=== PATIENT | female | born 1995 | race African-American/Black ===

== ENCOUNTER 2017-09-05 04:44 | Emergency (ER) | payer OTHER ==
[2017-09-05] MEDS ORDERED: LIDOCAINE 1%/EPINEPHRINE INJ 20 ML VIAL INJ ONE (05:48)
--- NOTE | 2017-09-05 05:51 | ER Document Report ---
ED Psych Disorder / Suicide - General Mode of Arrival: Wheelchair Information source: Patient TRAVEL OUTSIDE OF THE [place] IN LAST 30 DAYS: No - HPI Onset was: Sudden Quality of pain: Achy Pain Level: 2 Suicide Risk Factors: Bipolar Injury to: Leg Associated symptoms: Flat affect Similar symptoms previously: No Recently seen / treated by doctor: No <JANICE CHAN - Last Filed: 09/05/17 07:46> <SCOTT PRITCHETT - Last Filed: 09/05/17 11:04> - General Chief Complaint: Leg Injury Stated Complaint: LACERATION RIGHT LEG Time Seen by Provider: 09/05/17 05:16 Notes: Patient states that she was attempting to jump over a fence and cut her leg on a chain link fence. Patient reports tetanus immunization is currently up-to- date. Patient with with injuries that are inconsistent with her description of events. Patient with several superficial lacerations just superior to her larger laceration which prompted her ER visit sammy. (JANICE CHAN) - Related Data Allergies/Adverse Reactions: No Known Allergies Allergy (Unverified 12/04/15 00:08) Past Medical History - General Information source: Patient - Social History Smoking Status: Current Every Day Smoker Chew tobacco use (# tins/day): No Frequency of alcohol use: Occasional Drug Abuse: Marijuana Family History: Reviewed & Not Pertinent Patient has suicidal ideation: No Patient has homicidal ideation: No Renal/ Medical History: Denies: Hx Peritoneal Dialysis Psychiatric Medical History: Reports: Hx Anxiety, Hx Bipolar Disorder, Hx Depression - anxiety, borderline personality disorder, eating disorder Past Surgical History: Reports: Hx Oral Surgery - Immunizations Hx Diphtheria, Pertussis, Tetanus Vaccination: Yes <JANICE CHAN - Last Filed: 09/05/17 07:46> Review of Systems - Review of Systems Constitutional: No symptoms reported EENT: No symptoms reported Cardiovascular: No symptoms reported Respiratory: No symptoms reported Gastrointestinal: No symptoms reported Genitourinary: No symptoms reported Female Genitourinary: No symptoms reported Musculoskeletal: No symptoms reported Skin: Other - Right thigh laceration Hematologic/Lymphatic: No symptoms reported Neurological/Psychological: No symptoms reported <JANICE CHAN - Last Filed: 09/05/17 07:46> Physical Exam - General General appearance: Appears well, Alert In distress: None - Respiratory Respiratory status: No respiratory distress Chest status: Nontender Breath sounds: Normal Chest palpation: Normal - Cardiovascular Rhythm: Regular Heart sounds: S1 appreciated, S2 appreciated Murmur: No - Back Back: Normal - Extremities General upper extremity: Normal inspection, Normal ROM General lower extremity: Normal ROM - Neurological Neuro grossly intact: Yes Cognition: Normal Jae Coma Scale Eye Opening: Spontaneous [place] Coma Scale Verbal: Oriented [place] Coma Scale Motor: Obeys Commands Jae Coma Scale Total: 15 - Psychological Associated symptoms: Flat affect - Skin Skin Temperature: Warm Skin Moisture: Dry Skin irregularity: Laceration - 8 cm laceration to the anterior aspect of right thigh, patient with several superficial lacerations just superior to this injury <JANICE CHAN - Last Filed: 09/05/17 07:46> - Vital signs Vitals: Temp Pulse Resp BP Pulse Ox 98.7 F 91 16 124/75 98 09/05/17 04:45 09/05/17 04:45 09/05/17 04:45 09/05/17 04:45 09/05/17 04:45 Course - Laboratory Result Diagrams: 09/05/17 05:55 09/05/17 05:55 <JANICE CHAN - Last Filed: 09/05/17 07:46> - Laboratory Result Diagrams: 09/05/17 05:55 09/05/17 05:55 <SCOTT PRITCHETT - Last Filed: 09/05/17 11:04> - Re-evaluation Re-evalutation: 09/05/17 05:50 Patient's injuries in consistent with the reported story that she said happened tonight. Patient does have a previous history of anxiety, bipolar disorder and previous suicidal ideation in the past. Patient confronted with the discrepancy in her story and asked if there was anything else she wanted to say. Patient did acknowledge self injury stating that she had a bad night tonight. 09/05/17 07:46 Report and handout given to Iman HOOK (JANICE CHAN) - Vital Signs Vital signs: Temp Pulse Resp BP Pulse Ox 98.7 F 91 16 124/75 98 09/05/17 04:45 09/05/17 04:45 09/05/17 04:45 09/05/17 04:45 09/05/17 04:45 - Laboratory Laboratory results interpreted by me: 09/05/17 09/05/17 09/05/17 05:55 05:55 06:42 RDW 15.3 H Urine Protein 100 H Urine Ketones 20 H Urine Urobilinogen 2.0 H Ur Leukocyte Esterase LARGE H Salicylates < 1.0 L Acetaminophen < 10 L Labs- Entire Visit 09/05/17 09/05/17 09/05/17 05:55 05:55 05:55 WBC 10.5 RBC 4.84 Hgb 13.2 Hct 39.8 MCV 82 MCH 27.2 MCHC 33.1 RDW 15.3 H Plt Count 287 Seg Neutrophils % 69.9 Lymphocytes % 19.1 Monocytes % 9.5 Eosinophils % 1.2 Basophils % 0.3 Absolute Neutrophils 7.4 Absolute Lymphocytes 2.0 Absolute Monocytes 1.0 Absolute Eosinophils 0.1 Absolute Basophils 0.0 Sodium 143.5 Potassium 3.8 Chloride 101 Carbon Dioxide 27 Anion Gap 16 BUN 12 Creatinine 0.60 Est GFR ( Amer) > 60 Est GFR (Non-Af Amer) > 60 Glucose 108 Calcium 10.1 Total Bilirubin 0.7 Direct Bilirubin 0.3 Neonat Total Bilirubin Not Reportable Neonat Direct Bilirubin Not Reportable Neonat Indirect Bili Not Reportable AST 22 ALT 22 Alkaline Phosphatase 59 Total Protein 7.5 Albumin 4.5 Serum HCG, Qual NEGATIVE Urine Color Urine Appearance Urine pH Ur Specific [place] Urine Protein Urine Glucose (UA) Urine Ketones Urine Blood Urine Nitrite Urine Bilirubin Urine Urobilinogen Ur Leukocyte Esterase Urine WBC (Auto) Urine RBC (Auto) U Hyaline Cast (Auto) Urine Bacteria (Auto) Squamous Epi Cells Auto Urine Mucus (Auto) Urine Ascorbic Acid Salicylates < 1.0 L Urine Opiates Screen Urine Methadone Screen Acetaminophen < 10 L Ur Barbiturates Screen Ur Phencyclidine Scrn Ur Amphetamines Screen U Benzodiazepines Scrn Urine Cocaine Screen U Marijuana (THC) Screen Serum Alcohol < 10 09/05/17 09/05/17 06:42 06:42 WBC RBC Hgb Hct MCV MCH MCHC RDW Plt Count Seg Neutrophils % Lymphocytes % Monocytes % Eosinophils % Basophils % Absolute Neutrophils Absolute Lymphocytes Absolute Monocytes Absolute Eosinophils Absolute Basophils Sodium Potassium Chloride Carbon Dioxide Anion Gap BUN Creatinine Est GFR ( Amer) Est GFR (Non-Af Amer) Glucose Calcium Total Bilirubin Direct Bilirubin Neonat Total Bilirubin Neonat Direct Bilirubin Neonat Indirect Bili AST ALT Alkaline Phosphatase Total Protein Albumin Serum HCG, Qual Urine Color YELLOW Urine Appearance CLOUDY Urine pH 6.0 Ur Specific [place] 1.019 Urine Protein 100 H Urine Glucose (UA) NEGATIVE Urine Ketones 20 H Urine Blood NEGATIVE Urine Nitrite NEGATIVE Urine Bilirubin NEGATIVE Urine Urobilinogen 2.0 H Ur Leukocyte Esterase LARGE H Urine WBC (Auto) >182 Urine RBC (Auto) 8 U Hyaline Cast (Auto) 29 Urine Bacteria (Auto) TRACE Squamous Epi Cells Auto 3 Urine Mucus (Auto) MANY Urine Ascorbic Acid NEGATIVE Salicylates Urine Opiates Screen UNCONFIRMED POSITIVE Urine Methadone Screen NEGATIVE Acetaminophen Ur Barbiturates Screen NEGATIVE Ur Phencyclidine Scrn NEGATIVE Ur Amphetamines Screen UNCONFIRMED POSITIVE U Benzodiazepines Scrn UNCONFIRMED POSITIVE Urine Cocaine Screen NEGATIVE U Marijuana (THC) Screen UNCONFIRMED POSITIVE Serum Alcohol (JANICE CHAN) Procedures - Laceration/Wound Repair Right Thigh Wound length (cm): 8 Wound's Depth, Shape: Linear Laceration pre-procedure: Other - surgical scrub Anesthetic type: 1% Lidocaine w/epi Wound explored: Clean Wound Repaired With: Sutures Suture Size/Type: 4:0, Nylon Number of Sutures: 13 Layer Closure?: No Post-procedure wound care: Sterile dressing applied Post-procedure NV exam normal: Yes Complications: No Adult Front & Back picture: 1 - 8 cm lac 2 - multiple superficial lacerations <JANICE CHAN - Last Filed: 09/05/17 07:46> Discharge <JANICE CHAN - Last Filed: 09/05/17 07:46> <SCOTT PRITCHETT - Last Filed: 09/05/17 11:04> - Discharge Clinical Impression: Self-inflicted injury, Borderline personality disorder in adult Leg laceration Qualifiers: Encounter type: initial encounter Laterality: right Qualified Code(s): S81.811A - Laceration without foreign body, right lower leg, initial encounter UTI (urinary tract infection) Qualifiers: Urinary tract infection type: site unspecified Hematuria presence: with hematuria Qualified Code(s): N39.0 - Urinary tract infection, site not specified Condition: Stable Disposition: HOME, SELF-CARE Additional Instructions: Borderline personality disorder Borderline personality disorder is a pervasive pattern of instability of interpersonal relationships, self-image and affects, and marked impulsivity, beginning by early adulthood and present in a variety of contexts. Individuals are very sensitive to environmental circumstances individuals with BPD may display affective instability that is due to a marked reactivity of mood ( example intense episodic dysphoria, irritability, or anxiety usually lasting a few hours and only rarely more than a few days). Co-occurring disorders include depressive and bipolar disorders, substance use disorders, and attention deficit hyperactivity disorder. Borderline personality disorder also frequently co-occurs with the other personality disorders. Anxiety The physician feels that some of your health problems are being caused by anxiety. Anxiety affects your health in many ways. Anxiety alone can cause palpitations, sweats, chest pains, abdominal pains, shortness of breath, and headaches. It contributes to ulcer disease, high blood pressure, irritable bowel syndrome, and has been shown to cause flare-ups of many other diseases. Anxiety is not a simple disorder to treat. If the anxiety is due to recent life stresses, you may simply need time to "work through" the changes. If the anxiety is due to an underlying unhappiness with yourself or due to psychiatric disturbance, professional help will be needed. Your physician can refer you for further help if needed. Anti-anxiety medication is occasionally given if the stress is acute or if you are having trouble sleeping. Chronic or frequent use of these medications is not a good idea because the body becomes reliant on it, preventing you from dealing with life's normal stresses. Counseling Services It has been recommended that you seek professional counseling to assist you with the stresses that you are experiencing. Most people at some time in their lives experience personal problems with which they need help. Pride and feeling that one can't be helped keep a lot of people from the benefits of counseling. Follow up care: While in the emergency department you received a mental health assessment, based on the assessment it was determined your symptoms can be managed in an outpatient therapy environment. We recommend you follow-up with your primary outpatient therapist at [facility] and discuss today's visit. Your friend Niesha agreed to monitor you at home and remove any dangerous items from your access, for a safety plan until you have received an additional assessment with your therapist. In addition we provided education about the dangers of using self-harm as a negative coping skill, and provided education about substance abuse. We recommend you also discuss these topics with your therapist. Referrals: Irina Hammer [Other] - [facility] - Follow up tomorrow
[2017-09-05 06:13] LABS: ABSOLUTE EOSINOPHILS # (AUTO) 0.1 10^3/uL (0.0-0.6); ABSOLUTE NEUT (AUTO) 7.4 10^3/uL (1.7-8.2); BASOPHILS % (AUTO) 0.3 % (0-2); EOSINOPHILS % (AUTO) 1.2 % (0-6); HEMATOCRIT 39.8 % (36.0-47.0); HEMOGLOBIN 13.2 g/dL (12.0-15.5); LYMPHOCYTES % (AUTO) 19.1 % (13-45); MEAN CORPUSCULAR HEMOGLOBIN 27.2 pg (27.0-33.4); MEAN CORPUSCULAR HGB CONC 33.1 g/dL (32.0-36.0); MEAN CORPUSCULAR VOLUME 82 fl (80-97); MONOCYTES % (AUTO) 9.5 % (3-13); PLATELET COUNT 287 10^3/uL (150-450); RED BLOOD COUNT 4.84 10^6/uL (3.72-5.28); RED CELL DISTRIBUTION WIDTH 15.3 % (11.5-14.0); SEGMENTED NEUTROPHILS % (AUTO) 69.9 % (42-78); TOTAL CELLS COUNTED % (AUTO) 100 %; WHITE BLOOD COUNT 10.5 10^3/uL (4.0-10.5)
[2017-09-05 06:40] LABS: ALANINE AMINOTRANSFERASE 22 U/L (9-52); ALBUMIN 4.5 g/dL (3.5-5.0); ALKALINE PHOSPHATASE 59 U/L (38-126); ANION GAP 16 (5-19); ASPARTATE AMINO TRANSFERASE 22 U/L (14-36); BILIRUBIN,DIRECT 0.3 mg/dL (0.0-0.4); BILIRUBIN,TOTAL 0.7 mg/dL (0.2-1.3); BLOOD UREA NITROGEN 12 mg/dL (7-20); CALCIUM 10.1 mg/dL (8.4-10.2); CARBON DIOXIDE 27 mmol/L (22-30); CHLORIDE 101 mmol/L (98-107); GLUCOSE 108 mg/dL (75-110); POTASSIUM 3.8 mmol/L (3.6-5.0); SODIUM 143.5 mmol/L (137-145); TOTAL PROTEIN 7.5 g/dL (6.3-8.2)
[2017-09-05 06:48] LABS: ACETAMINOPHEN < 10 ug/mL (10-30); ALCOHOL < 10 mg/dL (NONE DETECTED); SALICYLATE < 1.0 mg/dL (2.0-20.0)
[2017-09-05 07:01] LABS: APPEARANCE,URINE CLOUDY; BILIRUBIN,URINE NEGATIVE (NEGATIVE); COLOR,URINE YELLOW; GLUCOSE, URINE NEGATIVE (NEGATIVE); KETONES,URINE 20 mg/dL (NEGATIVE); LEUKOCYTE ESTERASE,URINE LARGE (NEGATIVE); NITRITE,URINE NEGATIVE (NEGATIVE); PROTEIN,URINE 100 mg/dL (NEGATIVE); URINE SPECIFIC GRAVITY 1.019
[2017-09-05 07:16] LABS: URINE AMPHETAMINES SCREEN UNCONFIRMED POSITIVE; URINE BARBITURATES SCREEN NEGATIVE; URINE BENZODIAZEPINES SCREEN UNCONFIRMED POSITIVE; URINE COCAINE SCREEN NEGATIVE; URINE MARIJUANA (THC) SCREEN UNCONFIRMED POSITIVE; URINE METHADONE SCREEN NEGATIVE; URINE PHENCYCLIDINE SCREEN NEGATIVE
--- NOTE | 2017-09-05 07:31 | EKG REPORT ---
SEVERITY:- NORMAL ECG - SINUS RHYTHM : Confirmed by: Jaden Burns MD 05-Sep-2017 07:31:01
[2017-09-05] MEDS ORDERED: CEPHALEXIN 500 MG CAPSULE PO ONE (07:45)
--- NOTE | 2017-09-05 09:17 | ER Document Report ---
Doctor's Note Notes: 09/05/17 09:16 I have reviewed the chart from initial encounter. Patient with self-harm. Lacerations site has been evaluated. Significantly large laceration but no active bleeding. Well approximated wound edges. No obvious complications at this time. Of note, urinalysis remarkable for UTI. Started on some Keflex at this time. Urine culture as well as urine GC and chlamydia added. GC and chlamydia added based on the fact the patient has multiple drugs in the system with self-harm behavior there is a high risk for high risk sexual activity as well. Will probably need to get a dirty catch urine. Will begin treatment with Keflex first. Will reassess and continue to follow based on mental health recommendations. If everything clears will need to be discharged on some antibiotics for the urine. 09/05/17 10:20 09/05/17 11:29 At this time mental health believes patient is stable for outpatient treatment. Patient does not have an active plan to hurt herself. States that she overreacted and is remorseful. Will currently discharge. Will need sutures out in 10 days. Discharge - Discharge Clinical Impression: Self-inflicted injury, Borderline personality disorder in adult Leg laceration Qualifiers: Encounter type: initial encounter Laterality: right Qualified Code(s): S81.811A - Laceration without foreign body, right lower leg, initial encounter UTI (urinary tract infection) Qualifiers: Urinary tract infection type: site unspecified Hematuria presence: with hematuria Qualified Code(s): N39.0 - Urinary tract infection, site not specified Condition: Stable Disposition: HOME, SELF-CARE Instructions: Cephalexin ([facility]), Laceration Care ([facility]), Antibiotic Ointment Protection ([facility]), Urinary Tract Infection ([facility]) Additional Instructions: Please have sutures removed in 10 days. Keep wound clean and dry for the next 48 hours. Apply antibiotic ointment to laceration area to keep skin from getting infected. If redness, pain, streaking around the laceration site, numbness or other issues arise please return immediately for repeat evaluation. Sutures may be removed in the emergency department in 10 days or with your regular doctor. Do not attempt to remove sutures by yourself. Borderline personality disorder Borderline personality disorder is a pervasive pattern of instability of interpersonal relationships, self-image and affects, and marked impulsivity, beginning by early adulthood and present in a variety of contexts. Individuals are very sensitive to environmental circumstances individuals with BPD may display affective instability that is due to a marked reactivity of mood ( example intense episodic dysphoria, irritability, or anxiety usually lasting a few hours and only rarely more than a few days). Co-occurring disorders include depressive and bipolar disorders, substance use disorders, and attention deficit hyperactivity disorder. Borderline personality disorder also frequently co-occurs with the other personality disorders. Anxiety The physician feels that some of your health problems are being caused by anxiety. Anxiety affects your health in many ways. Anxiety alone can cause palpitations, sweats, chest pains, abdominal pains, shortness of breath, and headaches. It contributes to ulcer disease, high blood pressure, irritable bowel syndrome, and has been shown to cause flare-ups of many other diseases. Anxiety is not a simple disorder to treat. If the anxiety is due to recent life stresses, you may simply need time to "work through" the changes. If the anxiety is due to an underlying unhappiness with yourself or due to psychiatric disturbance, professional help will be needed. Your physician can refer you for further help if needed. Anti-anxiety medication is occasionally given if the stress is acute or if you are having trouble sleeping. Chronic or frequent use of these medications is not a good idea because the body becomes reliant on it, preventing you from dealing with life's normal stresses. Counseling Services It has been recommended that you seek professional counseling to assist you with the stresses that you are experiencing. Most people at some time in their lives experience personal problems with which they need help. Pride and feeling that one can't be helped keep a lot of people from the benefits of counseling. Follow up care: While in the emergency department you received a mental health assessment, based on the assessment it was determined your symptoms can be managed in an outpatient therapy environment. We recommend you follow-up with your primary outpatient therapist at [facility] and discuss today's visit. Your friend Niesha agreed to monitor you at home and remove any dangerous items from your access, for a safety plan until you have received an additional assessment with your therapist. In addition we provided education about the dangers of using self-harm as a negative coping skill, and provided education about substance abuse. We recommend you also discuss these topics with your therapist. Prescriptions: Cephalexin Monohydrate [Keflex 500 mg Capsule] 500 mg PO Q6H 5 Days capsule Referrals: Irina Hammer [Other] - Follow up as needed [facility] [Other] - Follow up tomorrow Course - Re-evaluation Re-evalutation: 09/05/17 10:24 Laboratory 09/05/17 09/05/17 09/05/17 05:55 05:55 05:55 WBC 10.5 RBC 4.84 Hgb 13.2 Hct 39.8 MCV 82 MCH 27.2 MCHC 33.1 RDW 15.3 H Plt Count 287 Seg Neutrophils % 69.9 Lymphocytes % 19.1 Monocytes % 9.5 Eosinophils % 1.2 Basophils % 0.3 Absolute Neutrophils 7.4 Absolute Lymphocytes 2.0 Absolute Monocytes 1.0 Absolute Eosinophils 0.1 Absolute Basophils 0.0 Sodium 143.5 Potassium 3.8 Chloride 101 Carbon Dioxide 27 Anion Gap 16 BUN 12 Creatinine 0.60 Est GFR ( Amer) > 60 Est GFR (Non-Af Amer) > 60 Glucose 108 Calcium 10.1 Total Bilirubin 0.7 Direct Bilirubin 0.3 Neonat Total Bilirubin Not Reportable Neonat Direct Bilirubin Not Reportable Neonat Indirect Bili Not Reportable AST 22 ALT 22 Alkaline Phosphatase 59 Total Protein 7.5 Albumin 4.5 Serum HCG, Qual NEGATIVE Urine Color Urine Appearance Urine pH Ur Specific [place] Urine Protein Urine Glucose (UA) Urine Ketones Urine Blood Urine Nitrite Urine Bilirubin Urine Urobilinogen Ur Leukocyte Esterase Urine WBC (Auto) Urine RBC (Auto) U Hyaline Cast (Auto) Urine Bacteria (Auto) Squamous Epi Cells Auto Urine Mucus (Auto) Urine Ascorbic Acid Salicylates < 1.0 L Urine Opiates Screen Urine Methadone Screen Acetaminophen < 10 L Ur Barbiturates Screen Ur Phencyclidine Scrn Ur Amphetamines Screen U Benzodiazepines Scrn Urine Cocaine Screen U Marijuana (THC) Screen Serum Alcohol < 10 09/05/17 09/05/17 06:42 06:42 WBC RBC Hgb Hct MCV MCH MCHC RDW Plt Count Seg Neutrophils % Lymphocytes % Monocytes % Eosinophils % Basophils % Absolute Neutrophils Absolute Lymphocytes Absolute Monocytes Absolute Eosinophils Absolute Basophils Sodium Potassium Chloride Carbon Dioxide Anion Gap BUN Creatinine Est GFR ( Amer) Est GFR (Non-Af Amer) Glucose Calcium Total Bilirubin Direct Bilirubin Neonat Total Bilirubin Neonat Direct Bilirubin Neonat Indirect Bili AST ALT Alkaline Phosphatase Total Protein Albumin Serum HCG, Qual Urine Color YELLOW Urine Appearance CLOUDY Urine pH 6.0 Ur Specific [place] 1.019 Urine Protein 100 H Urine Glucose (UA) NEGATIVE Urine Ketones 20 H Urine Blood NEGATIVE Urine Nitrite NEGATIVE Urine Bilirubin NEGATIVE Urine Urobilinogen 2.0 H Ur Leukocyte Esterase LARGE H Urine WBC (Auto) >182 Urine RBC (Auto) 8 U Hyaline Cast (Auto) 29 Urine Bacteria (Auto) TRACE Squamous Epi Cells Auto 3 Urine Mucus (Auto) MANY Urine Ascorbic Acid NEGATIVE Salicylates Urine Opiates Screen UNCONFIRMED POSITIVE Urine Methadone Screen NEGATIVE Acetaminophen Ur Barbiturates Screen NEGATIVE Ur Phencyclidine Scrn NEGATIVE Ur Amphetamines Screen UNCONFIRMED POSITIVE U Benzodiazepines Scrn UNCONFIRMED POSITIVE Urine Cocaine Screen NEGATIVE U Marijuana (THC) Screen UNCONFIRMED POSITIVE Serum Alcohol - Vital Signs Vital signs: Temp Pulse Resp BP Pulse Ox 98.7 F 91 16 124/75 98 09/05/17 04:45 09/05/17 04:45 09/05/17 04:45 09/05/17 04:45 09/05/17 04:45 - Laboratory Result Diagrams: 09/05/17 05:55 09/05/17 05:55 Laboratory results interpreted by me: 09/05/17 09/05/17 09/05/17 05:55 05:55 06:42 RDW 15.3 H Urine Protein 100 H Urine Ketones 20 H Urine Urobilinogen 2.0 H Ur Leukocyte Esterase LARGE H Salicylates < 1.0 L Acetaminophen < 10 L
--- NOTE | 2017-09-05 09:24 | PSYCHOLOGICAL NOTE ---
Psych Note - Psych Note Psych Note: Reason for consult: Self- harm ( lacerating her leg) Contact Permissions: Niesha Kevin [phone]; Patient's brother Gutierrez Patient is a 21-year-old female. Patient reports she was mad at her brother yesterday and they had an argument so she cut her leg. Patient reports that she did not intend on killing herself she just cuts herself when she is mad. Patient reports that she has borderline personality disorder and anxiety. Patient reports she has been to an inpatient psychiatric hospital 3 times before all for depression and suicidal ideation. Patient reports at this time she does not have suicidal ideation. Patient reports that when she does have suicidal ideation she never had a plan that she usually just because her friend and talks to someone. Patient reports that her is currently deployed so she has been staying at her brother's house and also with a friend who is present in the room. Patient reports that she takes gabapentin for anxiety. Patient reports that she does use substances ( drugs). Reports that she thinks a lot about her future because she has goals. Patient reports that she thinks her gabapentin that she takes for her anxiety works because she takes it twice a day. Patient reports she is currently a patient of [facility] and sees Irina Moser regularly. Patient reports that the last time she was at a facility was January 2017 for detoxing from her addiction to Xanax it was at [facility] and she states that it was helpful and getting her off Xanax. Collateral information: Niesha Kevin who is present in the room Patient's friend reports she was not concerned that her friend was going to kill herself. Patient's friend reports that the patient talks about her future a lot and it was more of her just wanting to self-harm and not realizing it was going to be that deep. Patient's friend reports that she stays with her at her house and they are always together. Patient's friend reports she is a good support system to her as they are always together. Per nurse report: Patient was intimate with the friend who is present. Clinician observed patient is having extramarital affair while her is currently deployed. Clinician observed patient tested positive for Benzodiazepines, THC, Amphetamines, and Opiates. Diagnosis: Per Patient report 301.83 (F60.3) Borderline Personality Disorder Impression/Plan: Patient is psychiatrically cleared for discharge. Recommendation for patient to follow-up with her clinical home [facility] psychiatry. Clinician observed patient displays future oriented thinking, is not endorsing suicidal or homicidal ideation and is not psychotic. Clinician observed while patient discussed her self-harm she was smiling and stating the facts in a humored manner. Patient provided education about negative effects of self-harm and addressed patient's substance use to provide education on the benefits of getting therapy and how substance use affects mental health symptoms. Clinician observed patient displays symptoms congruent with her reported Borderline Personality Disorder ( e.g. self- harm, unstable interpersonal relationships). Patient was discharged to her brother Gutierrez, who agreed to safety plan in their home and transport patient to her appointments. attending physician in agreement with plan and disposition. Consulted with Dr. Steen regarding the management and care of patient.
[2017-09-05] MEDS ORDERED: CEPHALEXIN 500 MG CAPSULE PO SCH (09:30)
[2017-09-05 11:40] LABS: CHLAM PCR NOT DETECTED (NOT DETECT); GON PCR NOT DETECTED (NOT DETECT)
[2017-09-05 11:42] VITALS: BP 113/63
== END 2017-09-05 11:42 | disposition home or self-care (01) ==
LOC: ER 04:44
PROC: 0HQHXZZ Repair Right Upper Leg Skin, External Approach (ICD-10-PCS; principal; 2017-09-05)
DX: S71.111A Laceration without foreign body, right thigh, initial encounter (principal); F17.200 Nicotine dependence, unspecified, uncomplicated; F60.3 Borderline personality disorder; X78.9XXA Intentional self-harm by unspecified sharp object, initial encounter
CPT/HCPCS: 93005; 99285; 36415; 87086; 80307 ×4; 84703; 85025; 80053; 81001; 87491; 87591; 93010; 12004; J3490

== ENCOUNTER 2017-09-15 15:50 | Emergency (ER) | payer OTHER ==
[2017-09-15 15:58] VITALS: BP 113/66
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
== END 2017-09-15 17:18 | disposition home or self-care (01) ==
LOC: ER 15:50
DX: S71.111D Laceration without foreign body, right thigh, subsequent encounter (principal); X78.1XXD Intentional self-harm by knife, subsequent encounter; F17.210 Nicotine dependence, cigarettes, uncomplicated
CPT/HCPCS: 99281; 99406